=== PATIENT | female | born 1985 | race Hispanic/Latino ===

== ENCOUNTER 2023-07-12 15:05 | Inpatient (IN) | payer SELFPAY ==
[~2023-07-12 15:05] MED LIST: Iopamidol 300 61% 100 ML VIAL FS ONE
[2023-07-12] MEDS ORDERED: Ondansetron PF 4 MG/2 ML Vial ONE (16:02)
[2023-07-12] MEDS ORDERED: Ketorolac Tromethamine 30 MG/ML VIAL ONE (16:02)
[2023-07-12] MEDS ORDERED: Acetaminophen 500 MG TAB ONE (16:02)
[2023-07-12 16:13] LABS: #Basophils 0.1 10x3/uL (0.0-0.2); #Eosinphils 0.1 10x3/uL (0.0-0.5); #Monocytes 1.8 10x3/uL (0.0-1.1); #Neutrophils 9.7 10x3/uL (1.5-8.4); %Basophils 0.4 % (0.0-2.0); %Eosinophils 0.6 % (0.0-6.0); %Lymphocytes 7.7 % (18.0-47.0); %Monocytes 13.8 % (0.0-10.0); %Neutrophils 76.9 % (40.0-75.0); Hematocrit 36.2 % (34.9-44.5); Hemoglobin 12.4 g/dL (12.0-15.5); Mean Corpuscular HGB CONC 34.3 g/dL (32.0-36.0); Mean Corpuscular Hemoglobin 30.9 pg (27.0-33.0); Mean Corpuscular Volume 90.3 fl (81.6-98.3); Platelet Count 232 10x3/uL (150-450); RBC Distribution Width 11.9 % (11.5-14.5); Red Blood Cell (RBC) Count 4.01 10x6/uL (3.90-5.03); White Blood Cell (WBC) Count 12.7 10x3/uL (3.5-10.5)
[2023-07-12 16:18] LABS: Bilirubin 1+ (Negative); Blood, Urine 50 (Negative); Clarity Clear (Clear); Glucose, Urine (Dipstick) Normal (Negative); Ketone, Urine Negative (Negative); Leukocyte 25 (Negative); Nitrite Negative (Negative); Protein, Urine (Dipstick) 100 mg/dl (Neg-Trace); Specific Gravity, Urine 1.005 (1.005-1.030)
[2023-07-12 16:28] LABS: CAUTI Indications for Culture Fever or rigors
[2023-07-12 16:31] LABS: Bacteria/HPF 2+ HPF (None Seen); Mucous/LPF 1+ LPF (<2+)
[2023-07-12 16:33] LABS: Urine Culture Reflex No No
[2023-07-12 16:33] LABS: ALT (SGPT) 159 U/L (8-55); AST (SGOT) 84 U/L (5-34); Albumin 3.9 g/dL (3.5-5.0); Alkaline Phosphatase 198 U/L (40-110); Anion Gap 15 mmol/L (10-20); BUN (Urea Nitrogen) 7 mg/dL (7.0-18.7); Calc. Creatinine Clearance 0 mL/min (70-130); Calcium 8.4 mg/dL (7.8-10.44); Carbon Dioxide 22 mmol/L (22-29); Chloride 102 mmol/L (98-107); Estimated GFR 104; Globulin 2.7 g/dL (2.4-3.5); Glucose 110 mg/dL (70-105); Potassium 4.1 mmol/L (3.5-5.1); Protein, Total 6.6 g/dL (6.0-8.3); Sodium 135 mmol/L (136-145)
[2023-07-12 17:23] LABS: SARS-CoV-2 NAA Rapid Test Not Detected (NotDetected)
[2023-07-12] MEDS ORDERED: Cefepime 2 GM VIAL ONE (17:57)
[2023-07-12] MEDS ORDERED: Morphine 4 MG/ML VIAL ONE (18:58)
[2023-07-12] MEDS ORDERED: Vancomycin 1 GM VIAL ONE (18:59)
[2023-07-12] MEDS ORDERED: Senokot S 8.6-50 MG TAB PO PRN (19:16)
[2023-07-12] MEDS ORDERED: Calcium Carbonate 500 MG ChewTAB PO PRN (19:16)
[2023-07-12] MEDS ORDERED: Zolpidem Tartrate 5 MG TAB PO PRN (19:16)
[2023-07-12] MEDS ORDERED: Guaifenesin DM 100-10/5 ML UDCUP PO PRN (19:16)
[2023-07-12 22:11] VITALS: BMI 26.4
[2023-07-12] MEDS: Acetaminophen 325 MG TAB PO PRN (22:25)
[2023-07-12] MEDS: Lactated Ringer's 1,000 ML IV SCH (22:25)
[2023-07-12] MEDS: Ondansetron PF 4 MG/2 ML Vial IVP PRN (22:32)
[2023-07-12 23:54] LABS: HBCM Index 0.06 S/CO (0-0.79); HBSAg Index 0.18 S/CO (0-0.99); Hep A IgM AB Non-Reactive S/CO (NonReactive); Hep A IgM S/CO 0.48 S/CO (0-0.79); Hep B Surf Ag Non-Reactive S/CO (NonReactive); Hep C IgG Ab Non-Reactive S/CO (NonReactive); Hep C Index 0.04 S/CO (0-0.79); Hepatitis B Core IgM Abs Non-Reactive S/CO (NonReactive)
[2023-07-13 02:13] LABS: Pregnancy Test - Urine (BHCG) Negative (Negative); Pregu Control Background? CLEAR/WHITE (CLR/WHITE); Pregu Control Bar Appear? YES (CONTROL BAR)
[2023-07-13] MEDS: Acetaminophen 325 MG TAB PO PRN ×4 (03:54→17:46)
[2023-07-13] MEDS: Ondansetron PF 4 MG/2 ML Vial IVP PRN ×2 (03:54→18:12)
[2023-07-13 03:57] LABS: #Eosinphils 0.1 10x3/uL (0.0-0.5); #Monocytes 1.7 10x3/uL (0.0-1.1); #Neutrophils 8.5 10x3/uL (1.5-8.4); %Basophils 0.3 % (0.0-2.0); %Eosinophils 0.8 % (0.0-6.0); %Lymphocytes 13.6 % (18.0-47.0); %Neutrophils 70.7 % (40.0-75.0); Hematocrit 31.4 % (34.9-44.5); Hemoglobin 10.3 g/dL (12.0-15.5); Mean Corpuscular HGB CONC 32.8 g/dL (32.0-36.0); Mean Corpuscular Hemoglobin 30.1 pg (27.0-33.0); Mean Corpuscular Volume 91.8 fl (81.6-98.3); Mean Platelet Volume 9.7 fl (7.4-10.4); Platelet Count 225 10x3/uL (150-450); RBC Distribution Width 12.2 % (11.5-14.5); Red Blood Cell (RBC) Count 3.42 10x6/uL (3.90-5.03); White Blood Cell (WBC) Count 12.1 10x3/uL (3.5-10.5)
[2023-07-13 04:04] LABS: ALT (SGPT) 101 U/L (8-55); AST (SGOT) 41 U/L (5-34); Albumin 3.1 g/dL (3.5-5.0); Alkaline Phosphatase 161 U/L (40-110); Anion Gap 11 mmol/L (10-20); BUN (Urea Nitrogen) 5 mg/dL (7.0-18.7); Bilirubin, Total 1.3 mg/dL (0.2-1.2); Calc. Creatinine Clearance 130 mL/min (70-130); Calcium 7.7 mg/dL (7.8-10.44); Carbon Dioxide 21 mmol/L (22-29); Cardiac Risk 4.4 (Less than 4.5); Chloride 108 mmol/L (98-107); Cholesterol 128 mg/dl (< 200 Desired); Estimated GFR 115; Globulin 2.5 g/dL (2.4-3.5); Glucose 99 mg/dL (70-105); HDL Cholesterol 29 mg/dL (>60 Neg Risk); LDL Cholesterol, Calculated 72 mg/dL; Potassium 4.1 mmol/L (3.5-5.1); Protein, Total 5.6 g/dL (6.0-8.3); Sodium 136 mmol/L (136-145); Triglycerides 136 mg/dL (Less than 150)
[2023-07-13] MEDS: HYDROcodone/Acetaminophen 5/325 mg Tablet PO PRN ×3 (04:43→20:15)
[2023-07-13] MEDS ORDERED: Lactated Ringer's 250 ML IV SCH (04:45)
[2023-07-13] MEDS: Cefepime 2 GM in Sodium Chloride 0.9% 100 ML IVPB SCH ×2 (06:00→17:34)
[2023-07-13] MEDS ORDERED: Albumin 25% 25 GM/100 ML BOT IVPB SCH (06:15)
[2023-07-13] MEDS ORDERED: Electrolyte Replacement Protocol 1 EACH FS SCH (09:30)
[2023-07-13] MEDS: Lactated Ringer's 1,000 ML IV SCH ×4 (17:35→19:10)
[2023-07-13] MEDS ORDERED: Acetaminophen 650 MG Suppository PR PRN (18:15)
[2023-07-13] MEDS: Famotidine 20 MG TAB PO SCH (20:15)
[2023-07-14] MEDS: Ondansetron PF 4 MG/2 ML Vial IVP PRN ×3 (00:19→15:31)
[2023-07-14] MEDS: Acetaminophen 325 MG TAB PO PRN ×2 (00:20→21:54)
[2023-07-14] MEDS: HYDROcodone/Acetaminophen 5/325 mg Tablet PO PRN ×3 (05:23→15:31)
[2023-07-14] MEDS: Cefepime 2 GM in Sodium Chloride 0.9% 100 ML IVPB SCH ×2 (05:24→18:15)
[2023-07-14 07:41] LABS: #Eosinphils 0.2 10x3/uL (0.0-0.5); #Monocytes 1.1 10x3/uL (0.0-1.1); #Neutrophils 7.4 10x3/uL (1.5-8.4); %Basophils 0.4 % (0.0-2.0); %Eosinophils 1.5 % (0.0-6.0); %Lymphocytes 14.1 % (18.0-47.0); %Monocytes 11.1 % (0.0-10.0); %Neutrophils 72.4 % (40.0-75.0); Hematocrit 29.7 % (34.9-44.5); Hemoglobin 9.8 g/dL (12.0-15.5); Mean Corpuscular Hemoglobin 30.4 pg (27.0-33.0); Mean Corpuscular Volume 92.2 fl (81.6-98.3); Mean Platelet Volume 9.9 fl (7.4-10.4); Platelet Count 268 10x3/uL (150-450); Red Blood Cell (RBC) Count 3.22 10x6/uL (3.90-5.03); White Blood Cell (WBC) Count 10.2 10x3/uL (3.5-10.5)
[2023-07-14 07:57] LABS: ALT (SGPT) 70 U/L (8-55); AST (SGOT) 22 U/L (5-34); Albumin 3.4 g/dL (3.5-5.0); Alkaline Phosphatase 154 U/L (40-110); Anion Gap 11 mmol/L (10-20); BUN (Urea Nitrogen) 5 mg/dL (7.0-18.7); Bilirubin, Total 0.7 mg/dL (0.2-1.2); Calc. Creatinine Clearance 128 mL/min (70-130); Calcium 8.4 mg/dL (7.8-10.44); Carbon Dioxide 25 mmol/L (22-29); Chloride 105 mmol/L (98-107); Estimated GFR 115; Globulin 2.5 g/dL (2.4-3.5); Glucose 94 mg/dL (70-105); Potassium 4.2 mmol/L (3.5-5.1); Protein, Total 5.9 g/dL (6.0-8.3); Sodium 137 mmol/L (136-145)
[2023-07-14] MEDS: Famotidine 20 MG TAB PO SCH ×2 (10:01→21:50)
[2023-07-14] MEDS: Lactated Ringer's 1,000 ML IV SCH ×2 (10:01→21:54)
[2023-07-15] MEDS: HYDROcodone/Acetaminophen 5/325 mg Tablet PO PRN ×3 (02:47→22:01)
[2023-07-15] MEDS: Cefepime 2 GM in Sodium Chloride 0.9% 100 ML IVPB SCH ×3 (05:43→22:03)
[2023-07-15] MEDS: Famotidine 20 MG TAB PO SCH ×2 (09:05→22:00)
[2023-07-15] MEDS: Lactated Ringer's 1,000 ML IV SCH (14:31)
[2023-07-15] MEDS: Morphine 2 MG/ML VIAL SLOW IVP PRN ×2 (19:56→23:55)
[2023-07-15] MEDS: Ondansetron PF 4 MG/2 ML Vial IVP PRN (20:06)
[2023-07-16] MEDS ORDERED: Ketorolac Tromethamine 30 MG/ML VIAL IVP SCH (00:45)
[2023-07-16] MEDS: Lactated Ringer's 1,000 ML IV SCH ×2 (03:29→05:13)
[2023-07-16 04:07] VITALS: BP 113/60
[2023-07-16] MEDS: Famotidine 20 MG TAB PO SCH (09:28)
[2023-07-16] MEDS: Cefepime 2 GM in Sodium Chloride 0.9% 100 ML IVPB SCH (09:28)
[2023-07-16] MEDS ORDERED: Ibuprofen 600 MG TAB PO SCH (13:00)
[2023-07-16 13:03] VITALS: TEMP 98.2
== END 2023-07-16 14:25 | disposition home or self-care (01) | DRG 872 ==
LOC: CSHERS 15:05 → CSHTELE 21:37
PROVIDERS: ADMIT Student in an Organized Health Care Education/Training Program; ATTEND Internal Medicine
PROC: 3E03329 Introduction of Other Anti-infective into Peripheral Vein, Percutaneous Approach (ICD-10-PCS; 2023-07-12)
PROC: 30233J1 Transfusion of Nonautologous Serum Albumin into Peripheral Vein, Percutaneous Approach (ICD-10-PCS; principal; 2023-07-13)
DX: A41.9 Sepsis, unspecified organism (principal); N10 Acute pyelonephritis; N13.4 Hydroureter; N13.30 Unspecified hydronephrosis; Z20.822 Contact with and (suspected) exposure to COVID-19; B96.89 Other specified bacterial agents as the cause of diseases classified elsewhere; E86.0 Dehydration; R79.89 Other specified abnormal findings of blood chemistry; J02.9 Acute pharyngitis, unspecified; Z98.890 Other specified postprocedural states; Z90.49 Acquired absence of other specified parts of digestive tract
CPT/HCPCS: 36415; 70450; 71045; 74177; 76705; 80053; 80061; 80074; 81001; 81025; 83605; 85025; 86140; 87040; 87086; 96374; 96375; J0692; J1650; J1885; J2270; J2272; J2405; J3370; J3490; J7120; P9047; Q9967

== ENCOUNTER 2024-07-07 10:27 | Emergency (ER) | payer SELFPAY ==
[2024-07-07 10:54] LABS: #Basophils 0.04 10x3/uL (0.0-0.2); #Monocytes 0.87 10x3/uL (0.0-1.1); #Neutrophils 5.16 10x3/uL (1.5-8.4); %Basophils 0.5 % (0.0-2.0); %Eosinophils 2.4 % (0.0-6.0); %Lymphocytes 23.3 % (18.0-47.0); %Monocytes 10.6 % (0.0-10.0); %Neutrophils 62.8 % (40.0-75.0); Hematocrit 37.4 % (34.9-44.5); Hemoglobin 12.7 g/dL (12.0-15.5); Mean Corpuscular Hemoglobin 30.2 pg (27.0-33.0); Mean Corpuscular Volume 88.8 fL (81.6-98.3); Mean Platelet Volume 9.1 fL (7.4-10.4); Platelet Count 324 10x3/uL (150-450); RBC Distribution Width 11.5 % (11.5-14.5); Red Blood Cell (RBC) Count 4.21 10x6/uL (3.90-5.03); White Blood Cell (WBC) Count 8.2 10x3/uL (3.5-10.5)
[2024-07-07 10:57] LABS: Bilirubin Neg (Negative); Blood, Urine Negative (Negative); Glucose, Urine (Dipstick) Normal (Negative); Ketone, Urine Negative (Negative); Leukocyte Negative (Negative); Nitrite Negative (Negative); Protein, Urine (Dipstick) Negative (Neg-Trace); Urobilinogen Normal mg/dL (Less than 2)
[2024-07-07 11:13] LABS: ALT (SGPT) 24 U/L (8-55); AST (SGOT) 18 U/L (5-34); Albumin 3.9 g/dL (3.5-5.0); Alkaline Phosphatase 68 U/L (40-110); Anion Gap 13 mmol/L (10-20); BUN (Urea Nitrogen) 8 mg/dL (7.0-18.7); Bilirubin, Total 0.6 mg/dL (0.2-1.2); Calc. Creatinine Clearance 0 mL/min (70-130); Calcium 9.5 mg/dL (7.8-10.44); Carbon Dioxide 24 mmol/L (22-29); Chloride 101 mmol/L (98-107); Estimated GFR 107; Globulin 3.5 g/dL (2.4-3.5); Glucose 92 mg/dL (70-105); Potassium 4.1 mmol/L (3.5-5.1); Protein, Total 7.4 g/dL (6.0-8.3); Sodium 134 mmol/L (136-145)
[2024-07-07 11:15] LABS: Clarity Clear (Clear)
[2024-07-07 11:28] LABS: Bacteria/HPF Rare-Few HPF (None Seen); CAUTI Indications for Culture Pregnancy; RBC/HPF 0-3 HPF (0-3); Squamous Epithelial 0-3 HPF (0-3); WBC/HPF 0-3 HPF (0-3)
[2024-07-07 11:30] LABS: Urine Culture Reflex No No; Urine Culture Reflex Yes Yes
== END 2024-07-07 14:23 | disposition home or self-care (01) ==
LOC: CSHERS 10:27
DX: O99.891 Other specified diseases and conditions complicating pregnancy (principal); R10.30 Lower abdominal pain, unspecified; R10.2 Pelvic and perineal pain; Z3A.08 8 weeks gestation of pregnancy
CPT/HCPCS: 36415; 76856; 80053; 81001; 84702; 85025; 86900; 86901; 87086; 93976

== ENCOUNTER 2024-08-14 15:10 | Outpatient (CLI) | payer SELFPAY, OTHER ==
[2024-08-14 16:06] LABS: Hemoglobin 12.9 g/dL (12.0-15.5); Mean Corpuscular HGB CONC 33.9 g/dL (32.0-36.0); Mean Corpuscular Volume 88.4 fL (81.6-98.3); Mean Platelet Volume 9.3 fL (7.4-10.4); Platelet Count 356 10x3/uL (150-450); RBC Distribution Width 11.5 % (11.5-14.5); White Blood Cell (WBC) Count 8.4 10x3/uL (3.5-10.5)
[2024-08-14 16:21] LABS: ALT (SGPT) 35 U/L (8-55); AST (SGOT) 26 U/L (5-34); Albumin 4.2 g/dL (3.5-5.0); Alkaline Phosphatase 76 U/L (40-110); Anion Gap 14 mmol/L (10-20); BUN (Urea Nitrogen) 9 mg/dL (7.0-18.7); Bilirubin, Direct 0.1 mg/dL (0.1-0.3); Bilirubin, Total 0.4 mg/dL (0.2-1.2); Calc. Creatinine Clearance 0 mL/min (70-130); Calcium 9.5 mg/dL (7.8-10.44); Carbon Dioxide 25 mmol/L (22-29); Chloride 103 mmol/L (98-107); Estimated GFR 97; Glucose 96 mg/dL (70-105); Potassium 4.4 mmol/L (3.5-5.1); Protein, Total 7.3 g/dL (6.0-8.3); Sodium 138 mmol/L (136-145)
== END 2024-08-14 15:11 | disposition home or self-care (01) ==
LOC: CSHLAB 15:10
PROVIDERS: ATTEND Obstetrics & Gynecology
DX: Z01.812 Encounter for preprocedural laboratory examination (principal); O73.1 Retained portions of placenta and membranes, without hemorrhage
CPT/HCPCS: 80048; 80076; 85027; 86900; 86901

== ENCOUNTER → 2024-08-15 | Day surgery (SDC) | payer OTHER, SELFPAY ==
[2024-08-14 16:12] VITALS: BMI 34.7
[~2024-08-15] MED LIST changes: +Carboprost 250 MCG/ML AMP ONE; +Dexamethasone 20 MG/5 ML VIAL ONE; +Doxycycline 100 MG CAP PO SCH; +HYDROcodone/Acetaminophen 5/325 mg Tablet ONE; +Ibuprofen 200 MG TAB PO PRN; -Iopamidol 300 61% 100 ML VIAL FS ONE; +Ketorolac Tromethamine 30 MG (1 mL) VIAL ONE; +Meperidine HCl/PF 25 MG (1 mL) VIAL ONE; +Methylergonovine 0.2 MG/ML VIAL ONE; +Misoprostol 200 MCG TAB ONE; +Ondansetron PF 4 MG/2 ML Vial ONE; +PROPOFOL 20 ML ONE; +Tranexamic Acid 1,000 MG/10 ML VIAL ONE; +fentaNYL 50 mcg/mL 1 mL Vial ONE
== END ==
LOC: CSHSDC 11:00
PROVIDERS: ATTEND Obstetrics & Gynecology
PROC: 10D17ZZ Extraction of Products of Conception, Retained, Via Natural or Artificial Opening (ICD-10-PCS; principal; 2024-08-15)
DX: O03.4 Incomplete spontaneous abortion without complication (principal); O72.2 Delayed and secondary postpartum hemorrhage; Z87.59 Personal history of other complications of pregnancy, childbirth and the puerperium; Z90.49 Acquired absence of other specified parts of digestive tract; Z98.890 Other specified postprocedural states; Z79.899 Other long term (current) drug therapy
CPT/HCPCS: 88305; J1100; J1885; J2175; J2210; J2405; J2704; J3010; J3490

== ENCOUNTER 2025-05-11 14:36 | Emergency (ER) | payer SELFPAY ==
[2025-05-11 15:29] LABS: #Basophils 0.03 10x3/uL (0.0-0.2); #Eosinophils 0.16 10x3/uL (0.0-0.5); #Monocytes 0.78 10x3/uL (0.0-1.1); #Neutrophils 4.37 10x3/uL (1.5-8.4); %Basophils 0.4 % (0.0-2.0); %Eosinophils 2.2 % (0.0-6.0); %Lymphocytes 26.0 % (18.0-47.0); %Monocytes 10.8 % (0.0-10.0); %Neutrophils 60.3 % (40.0-75.0); Hematocrit 39.4 % (34.9-44.5); Hemoglobin 13.4 g/dL (12.0-15.5); Mean Corpuscular Hemoglobin 29.6 pg (27.0-33.0); Mean Corpuscular Volume 87.2 fL (81.6-98.3); Platelet Count 375 10x3/uL (150-450); Red Blood Cell (RBC) Count 4.52 10x6/uL (3.90-5.03); White Blood Cell (WBC) Count 7.24 10x3/uL (3.5-10.5)
[2025-05-11 15:33] LABS: BHCG - Serum Negative (NEGATIVE); Pregs Control Background? CLEAR/WHITE (CLR/WHITE); Pregs Control Bar Appear? YES (CONTROL BAR)
[2025-05-11 15:40] LABS: ALT (SGPT) 19 U/L (Less than 34); AST (SGOT) 26 U/L (11-34); Albumin 4.6 g/dL (3.1-4.5); Alkaline Phosphatase 68 U/L (40-110); Anion Gap 13 mmol/L (10-20); BUN (Urea Nitrogen) 10 mg/dL (7.0-18.7); Bilirubin, Total 0.3 mg/dL (0.3-1.2); Calc. Creatinine Clearance 0 mL/min (70-130); Calcium 9.3 mg/dL (7.8-10.44); Carbon Dioxide 27 mmol/L (22-29); Chloride 104 mmol/L (98-107); Globulin 3.4 g/dL (2.4-3.5); Glucose 91 mg/dL (70-105); Lipase 50 U/L (8-78); Potassium 4.7 mmol/L (3.5-5.1); Sodium 139 mmol/L (136-145)
== END 2025-05-11 15:28 | disposition home or self-care (01) ==
LOC: CSHERS 14:36
DX: R10.9 Unspecified abdominal pain (principal); N93.9 Abnormal uterine and vaginal bleeding, unspecified
CPT/HCPCS: 36415; 80053; 83690; 84703; 85025; 99284